=== PATIENT | female | born 1995 | race African-American/Black ===

== ENCOUNTER 2023-12-14 01:37 | Day surgery (SDC) | payer OTHER, SELFPAY ==
[2023-12-08 14:04] VITALS: BMI 41.9
[2023-12-14 09:37] VITALS: BP 115/72; PULSE 92; RESP 18; TEMP 36.4; O2SAT 100
[2023-12-14] MEDS: LACTATED RINGERS 1,000 ML 150 ML IV CONT (09:59)
--- NOTE | 2023-12-14 10:13 | WPDANESEPPF ---
Anes - Initial Pre Proc Eval Procedure: Operation Date: 12/14/23 11:00 Proposed Procedures p Esophagogastroduodenoscopy&Screen Colon - Conrado Murillo MD Date/Time: 12/14/23 10:13 Surgeon: Conrado Murillo MD Pre Op Diagnosis: EHSAN Patient Data Age: 28 Gender: F Height: 1.73 m Weight: 119.5 kg Last Vital Signs Temp 36.4 C 12/14/23 09:37 Pulse 92 12/14/23 09:37 Resp 18 12/14/23 09:37 BP 115/72 12/14/23 09:37 Pulse Ox 100 12/14/23 09:37 O2 Del Method Room Air 12/14/23 09:37 Allergies Allergy/AdvReac Type Severity Reaction Status Date / Time No Known Allergies Allergy Verified 12/14/23 09:36 Home Medications Medication Instructions Recorded Confirmed Type dextroamphetamine-amphetamine 20 20 mg PO QACBREAK 12/08/23 12/08/23 History mg tablet folic acid 1 mg tablet 1 mg PO DAILY 12/08/23 12/08/23 History hydroxychloroquine 200 mg tablet 200 mg PO BID 12/08/23 12/08/23 History meloxicam 15 mg tablet 15 mg PO DAILY 12/08/23 12/08/23 History methotrexate sodium 2.5 mg tablet 20 mg PO Q7D 12/08/23 12/08/23 History peg 3350-electrolytes 236 240 ml PO Q10M #4,000 mL 12/08/23 Rx gram-22.74 gram-6.74 gram-5.86 gram solution (Golytely) prednisone 5 mg tablet 5 mg PO DAILY PRN Inflammation 12/08/23 12/08/23 History Patient hx anesthesia problems: none Family hx anesthesia problems: none Results Review: All pre-operative results and documents have been reviewed as part of the pre-operative evaluation. [facility], [facility] Past Medical History Medical History (Updated 12/14/23 @ 10:15 by Patrick Grove MD) Morbid obesity Rheumatoid arthritis Surgical History Surgical History (Updated 12/14/23 @ 10:16 by Patrick Grove MD) S/P ACL reconstruction Social History Social History Smoking status: Never smoker Alcohol intake: current Substance use: never Substance use type: does not use Living arrangements: with family Spiritual care concerns: No Anes - Eval Final PreProcedure Day of Procedure 12/14/23 10:13 Patient weight: morbidly obese Heart: regular rate and rhythm Lungs: clear to auscultation Airway: Mallampati scale class II Neurological: alert and oriented Last oral intake: >/= 8 hours ASA classification: III Emergent: no Anesthetic plan: proceed Anesthesia type and monitoring: general GIVS and standard monitoring Results Review: All pre-operative results and documents have been reviewed as part of the pre-operative evaluation. Informed Consent: The patient's anesthetic plan and its attendant risks and benefits were discussed with the patient/family/POA. Questions were solicited and answers provided to the satisfaction of the patient/family/POA.
--- NOTE | 2023-12-14 10:27 | PM.HPGS ---
History of Present Illness History of Present Illness Consent: Risks, benefits, and alternatives have been discussed and questions answered. Patient agrees to proceed with procedure. Chief complaint: EHSAN Narrative: Karina Lombardi is a 28 year old female here with EHSAN, never had scopes, denies overt gib Review of Systems Review of Systems: All systems reviewed & are unremarkable except as noted in HPI and below PMFSH Past Medical History Medical History (Updated 12/14/23 @ 10:28 by Conrado Murillo MD) Iron deficiency anemia Morbid obesity Rheumatoid arthritis Surgical History Surgical History (Updated 12/14/23 @ 10:16 by Patrick Grove MD) S/P ACL reconstruction Social History Social History Smoking status: Never smoker Alcohol intake: current Substance use: never Substance use type: does not use Living arrangements: with family Spiritual care concerns: No Meds Home Medications and Allergies Home Medications Medication Instructions Recorded Confirmed Type dextroamphetamine-amphetamine 20 20 mg PO QACBREAK 12/08/23 12/08/23 History mg tablet folic acid 1 mg tablet 1 mg PO DAILY 12/08/23 12/08/23 History hydroxychloroquine 200 mg tablet 200 mg PO BID 12/08/23 12/08/23 History meloxicam 15 mg tablet 15 mg PO DAILY 12/08/23 12/08/23 History methotrexate sodium 2.5 mg tablet 20 mg PO Q7D 12/08/23 12/08/23 History peg 3350-electrolytes 236 240 ml PO Q10M #4,000 mL 12/08/23 Rx gram-22.74 gram-6.74 gram-5.86 gram solution (Golytely) prednisone 5 mg tablet 5 mg PO DAILY PRN Inflammation 12/08/23 12/08/23 History Allergies Allergy/AdvReac Type Severity Reaction Status Date / Time No Known Allergies Allergy Verified 12/14/23 09:36 Vital Signs Vital Signs - 24 hr 12/14/23 09:37 Temperature 97.6 F Pulse Rate 92 Respiratory Rate 18 Blood Pressure 115/72 Pulse Oximetry 100 Oxygen Delivery Room Air Exam Const: General: comfortable and no acute distress HENMT: Face/Nose/Sinus: Normal nares present Eyes: General: appearance normal, both eyes and all related structures Neck: Neck: no JVD Resp: Auscultation: clear to auscultation bilaterally Cardio: Rate: regular rate Rhythm: regular rhythm GI: Inspection: non-distended GI Palp: Yes Soft to palpation Skin: General skin exam: normal color Neuro: General: gait normal Speech: normal speech Extrem: General: normal to inspection Psych: Mental Status: mental status grossly normal Assessment and Plan Assessment and plan (1) Iron deficiency anemia: Code(s): D50.9 - Iron deficiency anemia, unspecified Status: Acute Assessment and Plan: egd and colonoscopy
[2023-12-14 10:56] VITALS: BP 129/78; PULSE 78; RESP 20; O2SAT 100
--- NOTE | 2023-12-14 10:56 | SUR.OPER ---
EGD START 1036, END 1040 COLONOSCOPY START 1045, END 1053
[2023-12-14 11:06] VITALS: BP 136/78; PULSE 78; RESP 17; O2SAT 100
[2023-12-14 11:16] VITALS: BP 143/77; PULSE 67; RESP 18; O2SAT 100
== END 2023-12-14 13:03 | disposition home or self-care (01) ==
PROVIDERS: PCP Emergency Medicine; Visit Provider Internal Medicine Gastroenterology
PROC: 0DJ08ZZ Inspection of Upper Intestinal Tract, Via Natural or Artificial Opening Endoscopic (ICD-10-PCS; CPT 43235; principal; 2023-12-14 11:00)
DX: D50.9 Iron deficiency anemia, unspecified (principal); K64.8 Other hemorrhoids; K29.70 Gastritis, unspecified, without bleeding; M06.9 Rheumatoid arthritis, unspecified; Z79.631 Long term (current) use of antimetabolite agent; E66.01 Morbid (severe) obesity due to excess calories; Z68.41 Body mass index [BMI] 40.0-44.9, adult
CPT/HCPCS: 45378; 43239; 88305; J2704; J7120